=== PATIENT | male | born 1945 | race Two or more races ===

== ENCOUNTER → 2019-05-03 | Outpatient (CLI) | payer MEDICARE | END | disposition home or self-care (01) | LOC: CFH 13:39 | PROVIDERS: ATTEND Family Medicine | DX: I08.8 Other rheumatic multiple valve diseases (principal); I11.9 Hypertensive heart disease without heart failure; E78.5 Hyperlipidemia, unspecified; I48.91 Unspecified atrial fibrillation | CPT/HCPCS: 93306 ==

== ENCOUNTER 2019-09-19 15:32 | Emergency (ER) | payer MEDICARE ==
[~2019-09-19] VITALS: Ht 172.7 cm; Wt 79.0 kg
[~2019-09-19 15:32] MED LIST: AMLO10TA8 PO; ASPI81TA45 PO; CEFT1FRO2 IV; DOXA4TAB3 PO; FURO-92 PO; LIDO700A20 TD; MELO15TA24 PO; METF500T17 PO; METO25TA91 PO; ONDA4TAB13 PO; POTA20TA14 PO; RIVA20TA PO; SIMV20TA3 PO; SPIR25TA5 PO; TIZA4CAP PO
[2019-09-19] MEDS ORDERED: CEFTRIAXONE PMX 1GM/50ML 50 ML IV ONE (20:00)
[2019-09-19] MEDS ORDERED: BISACODYL 5 MG EC TABLET PO ONE (20:00)
[2019-09-19] MEDS ORDERED: MAGNESIUM CITRATE 300ML ORAL SOL PO ONE (20:00)
--- NOTE | 2019-09-19 20:00 | NUR ---
verbalized approval to us picc line
[2019-09-19] MEDS ORDERED: MAGNESIUM CITRATE 300ML ORAL SOL ONE (20:07)
[2019-09-19] MEDS ORDERED: CEFTRIAXONE PMX 1GM/50ML 50 ML ONE (20:07)
[2019-09-19] MEDS ORDERED: BISACODYL 5 MG EC TABLET ONE (20:08)
[2019-09-19 20:50] VITALS: BP 127/71
--- NOTE | 2019-09-19 20:52 | NUR ---
patient's picc line was flushed with 3ml of heparin per md verbalization. patient's son given education regarding flushing process for at home specialist.
== END 2019-09-19 20:54 | disposition home or self-care (01) ==
LOC: ED 20:35
DX: R31.0 Gross hematuria (principal); K59.00 Constipation, unspecified; E11.9 Type 2 diabetes mellitus without complications; I48.91 Unspecified atrial fibrillation
CPT/HCPCS: 96365; 99283; J0696

== ENCOUNTER 2020-04-30 08:51 | Outpatient (CLI) | payer MEDICARE ==
[~2020-04-30 08:51] MED LIST changes: +SIMV20TA19 PO; -SIMV20TA3 PO
== END 2020-04-30 23:59 | disposition home or self-care (01) ==
LOC: WOUND 08:51
PROVIDERS: ATTEND Podiatrist Foot & Ankle Surgery
DX: E11.621 Type 2 diabetes mellitus with foot ulcer (principal); L97.421 Non-pressure chronic ulcer of left heel and midfoot limited to breakdown of skin; I10 Essential (primary) hypertension; I48.91 Unspecified atrial fibrillation; E11.42 Type 2 diabetes mellitus with diabetic polyneuropathy; Z79.82 Long term (current) use of aspirin
CPT/HCPCS: 97597; G0463; 99214

== ENCOUNTER → 2020-05-07 | Outpatient (CLI) | payer MEDICARE | END | disposition home or self-care (01) | LOC: WOUND 13:40 | PROVIDERS: ATTEND Podiatrist Foot & Ankle Surgery | DX: E11.621 Type 2 diabetes mellitus with foot ulcer (principal); L97.421 Non-pressure chronic ulcer of left heel and midfoot limited to breakdown of skin; I10 Essential (primary) hypertension; I48.91 Unspecified atrial fibrillation; E11.42 Type 2 diabetes mellitus with diabetic polyneuropathy | CPT/HCPCS: 97597 ==

== ENCOUNTER 2020-05-14 11:03 | Outpatient (CLI) | payer MEDICARE | END 2020-05-14 23:59 | disposition home or self-care (01) | LOC: WOUND 11:03 | PROVIDERS: ATTEND Podiatrist Foot & Ankle Surgery | DX: E11.621 Type 2 diabetes mellitus with foot ulcer (principal); L97.421 Non-pressure chronic ulcer of left heel and midfoot limited to breakdown of skin; I10 Essential (primary) hypertension; I48.91 Unspecified atrial fibrillation; E11.42 Type 2 diabetes mellitus with diabetic polyneuropathy; Z79.82 Long term (current) use of aspirin | CPT/HCPCS: 97597 ==

== ENCOUNTER → 2020-05-21 | Outpatient (CLI) | payer MEDICARE | END | disposition home or self-care (01) | LOC: WOUND 08:31 | PROVIDERS: ATTEND Podiatrist Foot & Ankle Surgery | DX: E11.621 Type 2 diabetes mellitus with foot ulcer (principal); L97.428 Non-pressure chronic ulcer of left heel and midfoot with other specified severity; I10 Essential (primary) hypertension; I48.91 Unspecified atrial fibrillation; E11.42 Type 2 diabetes mellitus with diabetic polyneuropathy; Z79.82 Long term (current) use of aspirin | CPT/HCPCS: G0463 ==

== ENCOUNTER 2020-12-12 16:12 | Observation (INO) | payer MEDICARE ==
[~2020-12-12] VITALS: Ht 165.1 cm; Wt 89.1 kg
[~2020-12-12 16:12] MED LIST changes: +AMLO-211 PO; -AMLO10TA8 PO
[2020-12-12] MEDS ORDERED: MELO15TA24 PO (16:30)
--- NOTE | 2020-12-12 16:57 | NUR ---
PT REPORT FROM JOANNA GONZALES. PT CARE TO BE CONTINUED PER JANET, TEMPORARILY
[2020-12-12] MEDS ORDERED: ACETAMINOPHEN 325 MG TABLET PO ONE (17:30)
[2020-12-12] MEDS ORDERED: SODIUM CHLORIDE FLUSH 10ML SYR IVF ONE (17:30)
[2020-12-12] MEDS ORDERED: SODIUM CHLORIDE 0.9% 1,000ML IVBOLUS ONE (17:30)
[2020-12-12] MEDS ORDERED: LIDOCAINE 2%,20 ML JEL.PF.APP MM ONE (17:36)
[2020-12-12] MEDS ORDERED: ACETAMINOPHEN 325 MG TABLET ONE (17:40)
[2020-12-12 17:43] LABS: MEAN CORPUSCULAR HEMOGLOBIN 32.1 pg (27.5-34.5); MEAN CORPUSCULAR HGB CONC 34.2 g/dL (33.2-36.2); MEAN PLATELET VOLUME 7.7 fL (7.4-10.4); PLATELET COUNT 160 x10^3/uL (130-400); RED BLOOD COUNT 3.14 x10^6/uL (4.38-5.82); RED CELL DISTRIBUTION WIDTH 14.8 % (9.4-14.8)
--- NOTE | 2020-12-12 17:46 | NUR ---
PT REPORT FROM JOANNA GONZALES. JANET WILL INSERT NEW TEIXEIRA AND OBTAIN UA. TYLENOL PULLED FROM Positron; WILL BE ADMINISTERED TO PT PER JANET.
[2020-12-12 17:54] LABS: ALANINE AMINOTRANSFERASE 20 U/L (12-78); ANION GAP 6 mmol/L (5-15); CALCIUM 7.6 mg/dL (8.5-10.1); CHLORIDE 100 mmol/L (98-107); CREATININE 1.17 mg/dL (0.7-1.3)
[2020-12-12 17:56] LABS: ALKALINE PHOSPHATASE 62 U/L (45-117); BILIRUBIN,TOTAL 0.5 mg/dL (0.2-1.0); TOTAL PROTEIN 6.5 g/dL (6.4-8.2)
[2020-12-12 18:11] LABS: MD YES
[2020-12-12 18:13] LABS: <PLATELET ESTIMATE> ADEQUATE; <PLT MORPHOLOGY> NORMAL PLT MORPH; BAND#(MANUAL) 0.27 x10^3/uL; BANDS%(MANUAL) 2 % (0-7); LYMPH#(MANUAL) 0.95 x10^3/uL (1-3.4); LYMPHS% (MANUAL) 7 % (22-44); MONOS#(MANUAL) 0.54 x10^3/uL (0.3-2.7); MONOS% (MANUAL) 4 % (2-9); SEG#(MANUAL) 11.83 x10^3/uL (1.8-6.8); SEGS% (MANUAL) 87 % (42-75)
[2020-12-12 18:14] LABS: ANISOCYTOSIS 1+; MICROCYTOSIS 1+; OVALOCYTES 1+
[2020-12-12 18:28] LABS: MICROSCOPIC INDICATED
[2020-12-12] MEDS ORDERED: CEFTRIAXONE PMX 1GM/50ML 50 ML IV ONE (19:00)
[2020-12-12] MEDS ORDERED: LABETALOL 5MG/ML, 20ML IVPush PRN (19:30)
[2020-12-12] MEDS ORDERED: DOCUSATE 100 MG CAPSULE PO PRN (19:30)
[2020-12-12] MEDS ORDERED: CEFTRIAXONE PMX 1GM/50ML 50 ML ONE (19:40)
--- NOTE | 2020-12-12 19:48 | NUR ---
Gayla Austin ([facility]): [phone]
--- NOTE | 2020-12-12 19:49 | NUR ---
TASK RN: VITALS UPDATED AND ABX HUNG. RESP EVEN/UNLABORED. PT AND SON UNDERSTANDING OF POC
--- NOTE | 2020-12-12 20:09 | NUR ---
RESTING QUIETLY ON GURNEY. TEIXEIRA DRAINING CLOUDY YELLOW URINE. PT DENIES PAIN.
--- NOTE | 2020-12-12 20:13 | NUR ---
CALLED RECEIVING UNIT; RN NOT CURRENTLY AVAILABLE BUT WILL CALL BACK.
--- NOTE | 2020-12-12 20:23 | NUR ---
PT REPORT TO JOANNA RAMOS FOR ROOM [id number]
[2020-12-12] MEDS: INSULIN LISPRO 100 UNITS/ML, PEN SQ-INSULIN SCH (21:00)
[2020-12-12 21:35] VITALS: BP 107/58
[2020-12-12] MEDS: SIMVASTATIN 20 MG TABLET PO SCH (21:37)
[2020-12-12] MEDS: metFORMIN 500 MG TABLET PO SCH (21:37)
[2020-12-13 02:33] VITALS: BP 135/70
[2020-12-13] MEDS: ACETAMINOPHEN 325 MG TABLET PO PRN ×2 (02:37→09:25)
[2020-12-13 05:28] LABS: MEAN CORPUSCULAR HEMOGLOBIN 32.5 pg (27.5-34.5); MEAN CORPUSCULAR HGB CONC 34.6 g/dL (33.2-36.2); MEAN PLATELET VOLUME 7.9 fL (7.4-10.4); PLATELET COUNT 155 x10^3/uL (130-400); RED CELL DISTRIBUTION WIDTH 14.8 % (9.4-14.8)
[2020-12-13 05:34] LABS: ANION GAP 6 mmol/L (5-15); CALCIUM 7.7 mg/dL (8.5-10.1); CHLORIDE 100 mmol/L (98-107); CREATININE 1.03 mg/dL (0.7-1.3)
[2020-12-13 06:47] VITALS: BP 129/73
[2020-12-13] MEDS: INSULIN LISPRO 100 UNITS/ML, PEN SQ-INSULIN SCH ×4 (07:00→20:11)
[2020-12-13 07:21] LABS: MD YES
[2020-12-13 07:24] LABS: BAND#(MANUAL) 1.48 x10^3/uL; BANDS%(MANUAL) 12 % (0-7); LYMPH#(MANUAL) 0.25 x10^3/uL (1-3.4); LYMPHS% (MANUAL) 2 % (22-44); MONOS#(MANUAL) 0.62 x10^3/uL (0.3-2.7); MONOS% (MANUAL) 5 % (2-9); SEG#(MANUAL) 9.96 x10^3/uL (1.8-6.8); SEGS% (MANUAL) 81 % (42-75)
[2020-12-13 07:25] LABS: ANISOCYTOSIS 1+; OVALOCYTES 1+
[2020-12-13 07:26] LABS: <PLATELET ESTIMATE> ADEQUATE; <PLT MORPHOLOGY> NORMAL PLT MORPH
[2020-12-13] MEDS ORDERED: FUROSEMIDE 40 MG TABLET PO SCH (09:00)
[2020-12-13] MEDS ORDERED: SPIRONOLACTONE 25 MG TABLET PO SCH (09:00)
[2020-12-13] MEDS: DOXAZOSIN 2MG TABLET PO SCH (09:19)
[2020-12-13] MEDS: RIVAROXABAN 20 MG TABLET PO SCH (09:20)
[2020-12-13] MEDS: METOPROLOL SUCCINATE 25 MG TAB.ER.24H PO SCH (09:20)
[2020-12-13] MEDS: metFORMIN 500 MG TABLET PO SCH ×2 (09:21→20:11)
[2020-12-13] MEDS: AMLODIPINE 10 MG TAB PO SCH (09:22)
[2020-12-13] MEDS: ASPIRIN 81 MG TABLET EC PO SCH (09:22)
[2020-12-13] MEDS ORDERED: SODIUM CHLORIDE 0.9% 1,000 ML IV SCH (11:30)
[2020-12-13 12:10] VITALS: BP 114/68
[2020-12-13 12:23] LABS: MICROSCOPIC INDICATED
[2020-12-13] MEDS: CEFTRIAXONE PMX 1GM/50ML 50 ML IV SCH (18:10)
[2020-12-13] MEDS: SIMVASTATIN 20 MG TABLET PO SCH (20:11)
[2020-12-13 20:46] VITALS: BP 122/67
[2020-12-14 01:32] VITALS: BP 113/68
[2020-12-14] MEDS: INSULIN LISPRO 100 UNITS/ML, PEN SQ-INSULIN SCH ×4 (07:13→20:11)
[2020-12-14 07:56] VITALS: BP 143/67
[2020-12-14] MEDS: RIVAROXABAN 20 MG TABLET PO SCH (08:27)
[2020-12-14] MEDS: ASPIRIN 81 MG TABLET EC PO SCH (08:27)
[2020-12-14] MEDS: METOPROLOL SUCCINATE 25 MG TAB.ER.24H PO SCH (08:27)
[2020-12-14] MEDS: metFORMIN 500 MG TABLET PO SCH ×2 (08:28→20:03)
[2020-12-14] MEDS: AMLODIPINE 10 MG TAB PO SCH (08:28)
[2020-12-14] MEDS: DOXAZOSIN 2MG TABLET PO SCH (08:29)
[2020-12-14 09:03] LABS: BASOPHILS % (AUTO) 0 % (0-1); EOSINOPHILS % (AUTO) 0 % (1-7); LYMPHOCYTES % (AUTO) 6 % (22-44); MEAN CORPUSCULAR HGB CONC 35.2 g/dL (33.2-36.2); MEAN PLATELET VOLUME 8.1 fL (7.4-10.4); MONOCYTES % (AUTO) 9 % (2-9); NEUTROPHILS % (AUTO) 84 % (42-75); PLATELET COUNT 175 x10^3/uL (130-400); RED BLOOD COUNT 3.16 x10^6/uL (4.38-5.82); RED CELL DISTRIBUTION WIDTH 14.4 % (9.4-14.8)
[2020-12-14 09:04] LABS: MD NO
[2020-12-14 09:11] LABS: ANION GAP 7 mmol/L (5-15); CALCIUM 8.1 mg/dL (8.5-10.1); CHLORIDE 103 mmol/L (98-107); CREATININE 0.88 mg/dL (0.7-1.3)
[2020-12-14 12:06] VITALS: BP 115/74
[2020-12-14 14:27] LABS: RAPID INFLUENZA A Negative (Negative); RAPID INFLUENZA B Negative (Negative)
[2020-12-14] MEDS: CEFTRIAXONE PMX 1GM/50ML 50 ML IV SCH (17:42)
[2020-12-14] MEDS: SIMVASTATIN 20 MG TABLET PO SCH (20:03)
[2020-12-14 20:12] VITALS: BP 121/61
[2020-12-15 01:20] VITALS: BP 108/78
[2020-12-15 05:56] LABS: BASOPHILS % (AUTO) 1 % (0-1); EOSINOPHILS % (AUTO) 1 % (1-7); LYMPHOCYTES % (AUTO) 10 % (22-44); MEAN CORPUSCULAR HEMOGLOBIN 32.3 pg (27.5-34.5); MEAN PLATELET VOLUME 8.4 fL (7.4-10.4); MONOCYTES % (AUTO) 13 % (2-9); NEUTROPHILS % (AUTO) 76 % (42-75); PLATELET COUNT 187 x10^3/uL (130-400); RED BLOOD COUNT 3.07 x10^6/uL (4.38-5.82); RED CELL DISTRIBUTION WIDTH 14.6 % (9.4-14.8)
[2020-12-15 06:00] LABS: MD NO
[2020-12-15 06:10] LABS: ANION GAP 5 mmol/L (5-15); CALCIUM 8.2 mg/dL (8.5-10.1); CHLORIDE 103 mmol/L (98-107); CREATININE 0.79 mg/dL (0.7-1.3)
[2020-12-15 06:43] VITALS: BP 109/71
[2020-12-15] MEDS: INSULIN LISPRO 100 UNITS/ML, PEN SQ-INSULIN SCH ×2 (07:00→11:00)
[2020-12-15] MEDS ORDERED: CEFD300C37 PO (09:09)
[2020-12-15] MEDS: METOPROLOL SUCCINATE 25 MG TAB.ER.24H PO SCH (09:40)
[2020-12-15] MEDS: RIVAROXABAN 20 MG TABLET PO SCH (09:40)
[2020-12-15] MEDS: ASPIRIN 81 MG TABLET EC PO SCH (09:40)
[2020-12-15] MEDS: metFORMIN 500 MG TABLET PO SCH (09:40)
[2020-12-15] MEDS: DOXAZOSIN 2MG TABLET PO SCH (09:40)
[2020-12-15] MEDS: AMLODIPINE 10 MG TAB PO SCH (09:41)
== END 2020-12-15 13:05 | disposition home or self-care (01) ==
LOC: ED 18:11 → 3N 20:42 → INTOOBSV 20:42 → DCLOUNGE 12-15 12:51
PROVIDERS: ADMIT Family Medicine; ATTEND Internal Medicine
DX: A41.9 Sepsis, unspecified organism (principal); N39.0 Urinary tract infection, site not specified; E87.1 Hypo-osmolality and hyponatremia; I10 Essential (primary) hypertension; E11.9 Type 2 diabetes mellitus without complications; E78.5 Hyperlipidemia, unspecified; D72.825 Bandemia; D68.69 Other thrombophilia; D64.9 Anemia, unspecified; R19.7 Diarrhea, unspecified; I48.0 Paroxysmal atrial fibrillation; N40.0 Benign prostatic hyperplasia without lower urinary tract symptoms; Z87.891 Personal history of nicotine dependence; Z79.899 Other long term (current) drug therapy; Z79.82 Long term (current) use of aspirin; Z87.440 Personal history of urinary (tract) infections; Z79.84 Long term (current) use of oral hypoglycemic drugs
CPT/HCPCS: 36415; 80048; 80053; 81001; 82962; 83605; 83930; 83935; 84145; 85025; 87040; 87086; 87400; 96361; 96365; 96366; 99291; G0378; J0696; J7030; 96374

== ENCOUNTER → 2021-04-27 | Outpatient (CLI) | payer MEDICARE ==
[~2021-04-27] MED LIST changes: +CEFD300C37 PO
== END | disposition home or self-care (01) ==
LOC: WOUND 07:55
PROVIDERS: ATTEND Family Medicine
DX: E11.621 Type 2 diabetes mellitus with foot ulcer (principal); L97.421 Non-pressure chronic ulcer of left heel and midfoot limited to breakdown of skin; E11.622 Type 2 diabetes mellitus with other skin ulcer; L97.311 Non-pressure chronic ulcer of right ankle limited to breakdown of skin; I10 Essential (primary) hypertension; E78.5 Hyperlipidemia, unspecified; I48.0 Paroxysmal atrial fibrillation; M06.9 Rheumatoid arthritis, unspecified; H91.90 Unspecified hearing loss, unspecified ear; Z79.82 Long term (current) use of aspirin; Z79.899 Other long term (current) drug therapy; Z79.84 Long term (current) use of oral hypoglycemic drugs; Z87.891 Personal history of nicotine dependence
CPT/HCPCS: 97597; G0463

== ENCOUNTER 2021-05-06 09:48 | Outpatient (CLI) | payer MEDICARE | END 2021-05-06 23:59 | disposition home or self-care (01) | LOC: WOUND 09:48 | PROVIDERS: ATTEND Podiatrist Foot & Ankle Surgery | DX: E11.621 Type 2 diabetes mellitus with foot ulcer (principal); L97.421 Non-pressure chronic ulcer of left heel and midfoot limited to breakdown of skin; L84 Corns and callosities; M06.9 Rheumatoid arthritis, unspecified; I10 Essential (primary) hypertension; E78.5 Hyperlipidemia, unspecified; I48.0 Paroxysmal atrial fibrillation; H91.90 Unspecified hearing loss, unspecified ear; Z87.891 Personal history of nicotine dependence; Z79.899 Other long term (current) drug therapy; Z79.82 Long term (current) use of aspirin; Z79.84 Long term (current) use of oral hypoglycemic drugs | CPT/HCPCS: 97597 ==

== ENCOUNTER → 2021-05-13 | Outpatient (CLI) | payer MEDICARE | END | disposition home or self-care (01) | LOC: WOUND 09:48 | PROVIDERS: ATTEND Podiatrist Foot & Ankle Surgery | DX: E11.621 Type 2 diabetes mellitus with foot ulcer (principal); L97.428 Non-pressure chronic ulcer of left heel and midfoot with other specified severity; L84 Corns and callosities; M06.9 Rheumatoid arthritis, unspecified; I10 Essential (primary) hypertension; E78.5 Hyperlipidemia, unspecified; I48.0 Paroxysmal atrial fibrillation; H91.90 Unspecified hearing loss, unspecified ear; Z87.891 Personal history of nicotine dependence; Z79.899 Other long term (current) drug therapy; Z79.82 Long term (current) use of aspirin; Z79.84 Long term (current) use of oral hypoglycemic drugs | CPT/HCPCS: G0463 ==